=== PATIENT | female | born 1945 | race Caucasian/White ===

== ENCOUNTER → 2017-05-25 | Outpatient (CLI) | payer OTHER ==
[~2017-05-25] MED LIST: IOHEXOL 350 MG/ML 10 ML VIAL (for RAD DIAG) IV ONE
[2017-05-25 09:48] LABS: AUTOMATED NEUTROPHIL # 4.1 TH/MM3 (1.8-7.7); BASOPHIL # 0.1 TH/MM3 (0-0.2); BASOPHIL % 1.3 % (0.0-2.0); EOSINOPHIL # 1.3 TH/MM3 (0-0.4); EOSINOPHIL % 14.4 % (0.0-4.0); HEMATOCRIT 39.5 % (35.0-46.0); HEMO FLAGS DIFF FINAL; LYMPH % 30.4 % (9.0-44.0); LYMPHOCYTE # 2.7 TH/MM3 (1.0-4.8); MEAN CELL VOLUME 89.4 FL (80.0-100.0); MEAN CORPUSCULAR HEMOGLOBIN 29.5 PG (27.0-34.0); MEAN CORPUSCULAR HGB CONC 33.1 % (32.0-36.0); MONO % 7.7 % (0.0-8.0); NEUT % 46.2 % (16.0-70.0); PLATELET COUNT 304 TH/MM3 (150-450); RED BLOOD COUNT 4.42 MIL/MM3 (4.00-5.30); RED CELL DISTRIBUTION WIDTH 13.8 % (11.6-17.2); WHITE BLOOD COUNT 8.8 TH/MM3 (4.0-11.0)
[2017-05-25 10:24] LABS: ALKALINE PHOSPHATASE 54 U/L (45-117); ALT (GPT) 17 U/L (10-53); TOTAL BILIRUBIN ADULT 0.8 MG/DL (0.2-1.0)
[2017-05-25 10:30] LABS: ANION GAP 9 MEQ/L (5-15); AST (GOT) 22 U/L (15-37); BICARBONATE 28.2 MEQ/L (21.0-32.0); BLOOD UREA NITROGEN 19 MG/DL (7-18); CHLORIDE 101 MEQ/L (98-107); GLOMERULAR FILTRATION RATE 39 ML/MIN (>89); SODIUM (NA) 138 MEQ/L (136-145)
[2017-05-25 10:31] LABS: POTASSIUM 4.1 MEQ/L (3.5-5.1)
--- NOTE | 2017-05-25 12:23 | RADRPT ---
EXAM DATE/TIME: 05/25/2017 10:34 [facility] COMPARISON: No previous studies available for comparison. INDICATIONS : Pre operative trans aortic valve replacement. IV CONTRAST: 100 cc Omnipaque 350 (iohexol) IV RADIATION DOSE: 36.4 CTDIvol (mGy) MEDICAL HISTORY : None SURGICAL HISTORY : None. ENCOUNTER: Initial ACUITY: 1 day PAIN SCALE: 0/10 LOCATION: Bilateral chest TECHNIQUE: Volumetric scanning was performed using a multi-row detector CT scanner. The data was post processed with a variety of visualization algorithms including full volume maximum intensity projection, multi -planar sliding thin slab reformation, curved planar reformation, and surface rendering techniques. Using automated exposure control and adjustment of the mA and/or kV according to patient size, radiat ion dose was kept as low as reasonably achievable to obtain optimal diagnostic quality images. DIC OM format image data is available electronically for review and comparison. FINDINGS: Aortic root: The aortic root measures 3.97 cm. Moderate aortic calcification is evident with 3 coronary cusp. Mi nimal coronary calcifications are noted. There are no microcalcifications. There is no pericardial e ffusion. Thoracic aorta: Origin of the great vessels is normal. There is no significant hard or soft plaque. Abdominal aorta: The celiac, SMA and renal arteries are widely patent. Right iliac: Minimal calcification is seen at the origin of the right common iliac. The external iliac and common femoral widely patent. The common femoral measures 7 mm. Left common iliac: Minimal calcifications in aorta and left common iliac. The external iliac and common femoral widely patent. The left common femoral measures 7 mm. Source data: There is mild compensated cardiomegaly. There are no suspicious lung lesions identified. Pelvic contents are unremarkable. Moderate degenerative changes in the lumbar spine. The liver, spleen, pancreas and adrenals are unre markable Right kidney: Small with 4 cm simple cyst. Left kidney: Small renal cyst largest measuring 2.3 cm with one septation. Pelvic contents are unremarkable. Moderate degenerative changes in the lumbar spine CONCLUSION: Minimal atherosclerotic vascular disease as described above with moderate aortic calc ifications. Reasonable pelvic access is available. Ubaldo Tracy MD FACR on May 25, 2017 at 11:58 Board Certified Radiologist. This report was verified electronically.
== END ==
LOC: HRSP 07:56
PROVIDERS: ATTEND Radiology Vascular & Interventional Radiology
DX: I35.0 Nonrheumatic aortic (valve) stenosis (principal)
CPT/HCPCS: 74174; 80053; 85025; 86850; 86900; 86901; 94010; Q9967

== ENCOUNTER 2017-06-10 08:13 | Inpatient (IN) | payer OTHER, MEDICARE ==
[2017-06-10 09:23] LABS: AUTOMATED NEUTROPHIL # 4.9 TH/MM3 (1.8-7.7); BASOPHIL # 0.1 TH/MM3 (0-0.2); BASOPHIL % 1.3 % (0.0-2.0); EOSINOPHIL % 10.8 % (0.0-4.0); HEMO FLAGS DIFF FINAL; LYMPH % 26.5 % (9.0-44.0); LYMPHOCYTE # 2.4 TH/MM3 (1.0-4.8); MEAN CELL VOLUME 90.1 FL (80.0-100.0); MEAN CORPUSCULAR HEMOGLOBIN 30.1 PG (27.0-34.0); MEAN CORPUSCULAR HGB CONC 33.4 % (32.0-36.0); MONO % 7.8 % (0.0-8.0); NEUT % 53.6 % (16.0-70.0); PLATELET COUNT 305 TH/MM3 (150-450); RED BLOOD COUNT 4.22 MIL/MM3 (4.00-5.30); RED CELL DISTRIBUTION WIDTH 13.6 % (11.6-17.2); WHITE BLOOD COUNT 9.1 TH/MM3 (4.0-11.0)
[2017-06-10] MEDS ORDERED: ASPIRIN 81 MG CHEW TAB ONE (09:29)
[2017-06-10 09:34] LABS: APTT (PATIENT) 27.7 SEC (24.3-30.1); PROTHROMBIN TIME - PATIENT 10.9 SEC (9.8-11.6)
[2017-06-10 09:53] LABS: BICARBONATE 25.4 MEQ/L (21.0-32.0); POTASSIUM 4.4 MEQ/L (3.5-5.1)
[2017-06-10] MEDS ORDERED: ceFAZolin 2 GM PREMIX 50 ML ONE (10:57)
[2017-06-10] MEDS ORDERED: CUSTODIOL HTK IRR SOLN 3,000 ML ONE (11:06)
[2017-06-10] MEDS ORDERED: HEPARIN-NS/PF INJ 2,000 ML ONE (11:15)
--- NOTE | 2017-06-10 12:43 | MH ---
cc: HEATH VALDEZ DATE OF ADMISSION: 06/10/2017 DATE OF 1945 REASON FOR ADMISSION Admission to the hospital for percutaneous replacement of the aortic valve (TAVR). HISTORY OF PRESENT ILLNESS 71-year-old female with a past medical history significant for diabetes mellitus on insulin, hypertension, hyperlipidemia, left bundle-branch block and mild chronic renal insufficiency who has been followed by Dr. Lee for severe symptomatic aortic stenosis. The patient reports that for the last weeks to months she has had increased worsening of shortness of breath on minimal exertion as well as chest pain. The echocardiogram done showed severe aortic stenosis with a maximal aortic valve velocity of 4, mean gradient of 40 and calculated valve area of 0.7 and an ejection fraction of 40%. The patient is being admitted today for percutaneous aortic valve replacement. REVIEW OF SYSTEMS Negative except for what is mentioned in the HPI. PAST MEDICAL HISTORY 1. Diabetes type 2. 2. Hypertension. 3. Hyperlipidemia. 4. Left bundle-branch block. 5. Mild kidney disease. 6. Obesity. PAST SURGICAL HISTORY 1. Cholecystectomy. 2. Colonoscopy. 3. Tonsillectomy. SOCIAL HISTORY She denies smoking, illicit drug use or alcohol abuse. FAMILY HISTORY Non-contributory. HOME MEDICATIONS 1. Aspirin 81 mg p.o. daily. 2. Glipizide 10 mg p.o. daily. 3. Lantus injection subcutaneously daily. 4. Losartan. 5. Hydrochlorothiazide 100/25 p.o. daily. 6. Metformin 500 mg p.o. daily. 7. Simvastatin 10 mg p.o. daily. Nitroglycerin 0.5 mg sublingually p.r.n. for chest discomfort. ALLERGIES No known drug allergies. PHYSICAL EXAMINATION VITAL SIGNS: Temperature 97, respiratory rate 20, heart rate 70, bloodpressure 120/80. O2 saturation 100% on room air. GENERAL: Awake, alert, oriented x 3, in no acute distress. HEENT/NECK: No JVD, no carotid bruits. HEART: Regular rate and rhythm. There is a 3/6 systolic ejection murmur inthe aortic focus. LUNGS: Clear to auscultation bilaterally. No wheezes, no rhonchi, no rales. ABDOMEN: Positive bowel sounds. Soft, nontender, not distended. EXTREMITIES: No cyanosis, no edema. Pulses throughout. DATA Hemoglobin 12, hematocrit 38, platelet count 305. WBC 9.1. INR 1. Chemistry: Sodium 136, potassium 4.4, BUN 21, creatinine 1.3. TAVR WORKUP Echocardiogram shows an EF of 40%, aortic valve maximum velocity of 4.1, meangradient of 39 and calculated area of 0.7. CTA annulus area of 393. Iliacs - Both right and left iliac measure more than 7 mm. There is no calcification. STS score is 3.8. Frailty is 1/4. ASSESSMENT AND PLAN 71-year-old female with severe symptomatic aortic stenosis and symptoms of Jones Heart Association classification II-III, as well as angina. She has undergone the TAVR workup and she has been deemed intermediate risk for AVR. She was seen by Dr. Judd and Dr. Cartwright who agree for the patient to have the TAVR. The risks and benefits of TAVR have been explained to the patient including but not limited to infection, bleeding, acute kidney injury, emergent bypass surgery, stroke, neurovascular trauma and . The patient understands the risks and she is willing to proceed. PLAN Access right femoral 23-mm S3 Rayo valve. MD SOTERO Pino/DORIAN /12:03 PM /12:15 PM MTDD
[2017-06-10] MEDS ORDERED: IOHEXOL 350 MG/ML 100 ML BTL (for RAD DIAG) IVCONTRAST ONE (12:45)
[2017-06-10] MEDS ORDERED: ATROPINE SULFATE 1 MG/ML VIAL IV PUSH PRN (14:00)
[2017-06-10] MEDS ORDERED: ONDANSETRON HCL 4 MG/2 ML VIAL IV PUSH PRN (14:00)
[2017-06-10] MEDS ORDERED: ACETAMINOPHEN 325 MG TAB PO PRN (14:00)
[2017-06-10] MEDS ORDERED: SODIUM CHLOR 0.9% 1000 ML INJ 1,000 ML IV SCH (14:00)
[2017-06-10] MEDS ORDERED: DEXTROSE 50% IN WATER 50 ML VIAL(D50) IV PRN (14:00)
[2017-06-10] MEDS ORDERED: GLUCAGON 1 MG/ML VIAL OTHER PRN (14:00)
[2017-06-10] MEDS ORDERED: DO NOT ADM ANY ANTICOAGULANT DRUGS PRN (14:03)
--- NOTE | 2017-06-10 14:06 | PD.OP ---
cc: Noel Lowe MD; Micaela Thakur MD Operative Report Date of Surgery: Jun 10, 2017 Preoperative Diagnosis: (1) Aortic stenosis (2) Diastolic heart failure due to valvular disease Postoperative Diagnosis: same Procedure: Transcatheter aortic valve replacement with a 23 Daphne 3 Balloon aortic valvuloplasty with a 18 True Balloon Diagnostic fluoroscopy Aortography Right and left femoral arterial and left femoral venous percutaneous access with Perclose closure Anesthesia: Dr. Barry Surgeon: Micaela Thakur Physician Anesthesiologist(s): Co-surgeon - Dr. Farhana Allen - Dr. Madrid Operation and Findings: The risks, benefits, complications, treatment options, and expected outcomes were discussed with the patient. The possibilities of reaction to medication, pulmonary aspiration, perforation of viscus, bleeding, recurrent infection, the need for additional procedures, failure to diagnose a condition, and creating a complication requiring transfusion or operation were discussed with the patient. The patient concurred with the proposed plan, giving informed consent. The site of surgery properly noted/marked. The patient was taken to hybrid operating room, identified as Arcelia Padilla and the procedure verified as Transcatheter Aortic Valve Replacement. A Time Out was held and the above information confirmed. Standard monitoring lines and Henderson catheter were placed. General anesthesia was induced. The patient was prepped and draped in a sterile fashion. Initially,left femoral arterial and venous access was acquired using a Seldinger percutaneous technique. The details of this procedure were dictated under separate note by cardiology. Once a marker pigtail was positioned in the aortic annulus and a temporary transvenous pacemaker wire was placed in the right ventricular apex and tested, the right femoral artery was accessed using a needle followed by a guidewire under fluoroscopic guidance. Serial dilators were used to dilate the right femoral artery to 14 Barbadian caliber. The Rayo sheath was then inserted under fluoroscopic guidance. Arch aortography was performed to define the implant view. A balloon aortic valvuloplasty was then performed using a 18 x 6 True balloon with the patient being paced at 160 beats per minute. A 23 Rayo Daphne transcatheter aortic valve was then positioned in the annulus and deployed with the patient being paced at 160 beats per minute. Following deployment, the valve apparatus was withdrawn and arch aortography and SHILO were performed to assess the valve. The valve had no significant perivalvular leaks. Gradients were then measured and the sheath was slowly withdrawn to the distal right common iliac artery under fluoroscopic guidance. The sheath was withdrawn under direct vision and removed. Hemostasis was obtained using Perclose closure. Sterile dressings were placed. At the end of the operation, all sponge, instruments, and needle counts were correct. The patient was transferred to the CVICU in stable condition. Findings: Well-seated Daphne 3 with no PVL. Implants: 23 Daphne 3 tissue valve Complications: none Disposition: to CVICU in stable condition. Micaela Thakur MD Jun 10, 2017 14:06
[2017-06-10 14:15] VITALS: BP_SYST 137; BP_SYST 157; BP_DIAS 79; BP_DIAS 88; PULSE 74; PULSE 76; RESP 18; TEMP 94.6; O2SAT 97
[2017-06-10 14:26] VITALS: O2SAT 98
[2017-06-10] MEDS ORDERED: CLOPIDOGREL 300 MG TAB PO ONE (14:30)
[2017-06-10] MEDS ORDERED: MIDAZOLAM HCL 2 MG/2 ML VIAL ONE ×2 (14:44)
[2017-06-10] MEDS ORDERED: fentaNYL CITRATE 250 MCG/5 ML AMP ONE (14:44)
[2017-06-10 15:00] VITALS: BP_SYST 128; BP_SYST 151; BP_DIAS 66; BP_DIAS 75; PULSE 66; PULSE 68; RESP 18; TEMP 94.9; O2SAT 99
[2017-06-10] MEDS: INSULIN NovoLIN REGULAR SUPPLEMENTAL SCALE SQ SCH ×2 (16:07→21:00)
--- NOTE | 2017-06-10 16:22 | RADRPT ---
EXAM DATE/TIME: 06/10/2017 15:28 [facility] COMPARISON: No previous studies available for comparison. INDICATIONS : Central line placement MEDICAL HISTORY : None. SURGICAL HISTORY : None. ENCOUNTER: Initial ACUITY: 1 day PAIN SCORE: 0/10 LOCATION: Bilateral chest FINDINGS: There is patchy airspace disease in the left upper and lower lobes and right basilar atelectasis, pos sible small right effusion. There are 2 right jugular approach central venous catheter lines identifi ed, one demonstrates the distal tip at the expected location of the SVC, the other overlies the heart at the expected location of the right atrium versus ventricle. A metallic cardiac valvular prosthesi s overlies the heart. CONCLUSION: Central line placement. Ez Jackman MD on June 10, 2017 at 16:19 Board Certified Radiologist. This report was verified electronically.
--- NOTE | 2017-06-10 19:29 | EKG ---
Date Performed: 06/10/2017 Time Performed: 09:35:00 PTAGE: 71 years EKG: Sinus rhythm Left axis deviation Left bundle branch block Abnormal ECG NO PREVIOUS TRACING DOCTOR: Mirlande Burns Interpretating Date/Time 06/10/2017 19:28:15
--- NOTE | 2017-06-10 19:52 | PD.CONS ---
[facility] Service Critical Care Medicine Consult Requested By Dr. Declid Reason for Consult medical management of comorbid conditions Primary Care Physician Fabian Renee MD History of Present Illness This is a 71yF with history of insulin-dependent diabetes, hypertension, hyperlipidemia, left bundle-branch block, chronic renal insufficiency with baseline creatinine 1.3 and symptomatic aortic stenosis with a calculated valve area of 0.7 and a mildly depressed LVEF with any EF 40%. She presents for elective transcatheter aortic valve placement. I evaluated patient and the preop holding area. At that time she denied any complaints. I also evaluated her in the CVICU postoperatively where she again denied any complaints. Remainder the review of systems is negative. She underwent elective uncomplicated transcatheter aortic valve replacement with the right groin as access. Postoperatively she had dopplerable pulses bilaterally lower extremity' s. Review of Systems Constitutional: DENIES: Fever, Chills Eyes: DENIES: Eye pain Respiratory: DENIES: Cough, Sputum production, Shortness of breath Cardiovascular: DENIES: Chest pain, Syncope, Dyspnea on Exertion, Lower Extremity Edema Gastrointestinal: DENIES: Abdominal pain, Constipation, Diarrhea, Nausea, Vomiting Neurologic: DENIES: Headache, Localized weakness Past Family Social History Allergies: Coded Allergies: No Known Allergies (Verified Allergy, Unknown, 06/10/17) Past Medical History Insulin-dependent type 2 diabetes Hypertension Hyperlipidemia Left bundle branch block Stage 2 chronic kidney disease, baseline creatinine 1.3 Obesity Severe aortic stenosis Past Surgical History Cholecystectomy Colonoscopy Tonsillectomy Reported Medications Aspirin Glipizide Lantus Losartan HCTZ Metformin Simvastatin Active Ordered Medications See MAR Family History Reviewed and found to be noncontributory to her acute illness Social History Denies tobacco, alcohol, drugs of abuse Physical Exam Vital Signs Vital Signs Date Time Temp Pulse Resp B/P (MAP) Pulse Ox O2 Delivery O2 Flow Rate FiO2 06/10/17 15:00 94.9 68 18 128/75 (92) 99 151/66 (94) 06/10/17 15:00 66 06/10/17 14:26 98 Nasal Cannula 2.00 06/10/17 14:15 94.6 74 18 137/88 (104) 97 157/79 (105) 06/10/17 14:15 76 Physical Exam GENERAL: Frail elderly women, arousing from anesthesia, somnolent but arousable HEENT: Normocephalic. Atraumatic. Pupils equal, round, reactive, conjugate. Mucous membranes are moist NECK: Trachea is midline. There is no JVD. To central venous catheters exits right IJ with dressings are clean dry and intact CHEST: Unlabored. Nasal cannula. Clear to auscultation. CARDIOVASCULAR: Normal rate, regular rhythm. Sinus by telemetry. ABDOMEN: Soft, nontender, nondistended. No guarding. MUSCULOSKELETAL: Pulses 2+. No peripheral edema. Distal pulses are dopplerable in the lower extremities. 2 groin accesses with dressings intact no hematoma noted NEUROLOGICAL RASS -1. Follows commands. No focal deficits. Laboratory Laboratory Tests Test 06/10/17 09:00 White Blood Count 9.1 Red Blood Count 4.22 Hemoglobin 12.7 Hematocrit 38.0 Mean Corpuscular Volume 90.1 Mean Corpuscular Hemoglobin 30.1 Mean Corpuscular Hemoglobin Concent 33.4 Red Cell Distribution Width 13.6 Platelet Count 305 Mean Platelet Volume 7.4 Neutrophils (%) (Auto) 53.6 Lymphocytes (%) (Auto) 26.5 Monocytes (%) (Auto) 7.8 Eosinophils (%) (Auto) 10.8 Basophils (%) (Auto) 1.3 Neutrophils # (Auto) 4.9 Lymphocytes # (Auto) 2.4 Monocytes # (Auto) 0.7 Eosinophils # (Auto) 1.0 Basophils # (Auto) 0.1 CBC Comment DIFF FINAL Differential Comment Prothrombin Time 10.9 Prothromb Time International Ratio 1.0 Activated Partial Thromboplast Time 27.7 Blood Urea Nitrogen 21 Creatinine 1.30 Random Glucose 288 Calcium Level 8.4 Sodium Level 136 Potassium Level 4.4 Chloride Level 103 Carbon Dioxide Level 25.4 Anion Gap 8 Estimat Glomerular Filtration Rate 40 Result Diagram: 06/10/17 0900 06/10/17 09 Assessment and Plan Assessment and Plan Assessment: 71-year-old female postop day 0 status post transcatheter aortic valve replacement with right iliac groin access. We'll keep in ICU with frequent neurovascular checks and close monitoring. If she continues to improve clinically we could consider transitioning her out of ICU tomorrow. Aortic Stenosis s/p TAVR -- monitor neurovascular checks frequently -- watch for groin hematoma -- OOB to chair after flat time -- keep pacer tonight -- keep CVL and art line tonight -- watch uop closely -- plavix, asa Hypertension -- restart home meds -- goal sbp 110 - 140 Diabetes --ssi -- wait until tomorrow to restart oral hypoglycemics advance diet as tolerated. SCDs Dispo: remain in ICU overnight for close monitoring. could consider transitioning to floor tomorrow. Quan Bernard MD Jun 10, 2017 19:52
--- NOTE | 2017-06-10 19:58 | PD.PROCEDR ---
Procedure Note Procedure Procedure: Transesophageal Echocardiography Diagnosis: Severe aortic stenosis Indications: Intraoperative guidance for transcatheter aortic valve replacement. SHILO was used to confirm the preoperative diagnoses and guide intraoperative therapy at the request of cardiology/cardiac surgeon Consent: Verbal consent was obtained from the patient. I discussed the risks benefits and alternatives of SHILO with the patient including the risks of injury to the lips, teeth, tongue, back of throat, esophagus. After weighing the risks and benefits the patient agreed to proceed. Anesthesia: General Endotracheal anesthesia Description of the Procedure: The patient was sedated and mechanically ventilated. The echo probe was inserted easily and without resistance. At the conclusion of the procedure, the echo probe was removed. Please see detailed echocardiogram report for formal findings. Preliminary Findings (not confirmed): Pre-procedure: 1) Mildly depressed LVEF ~40% 2) Severe aortic stenosis with calculated valve area ~0.6 3) Mild aortic regurgitation 4) trace mitral regurgitation 5) preserved RV size and function 6) no pericardial effusion 7) no intra-atrial shunt by color flow doppler Intra-operative: 1) successful guidewire placement in aorta without evidence of dissection 2) successful balloon valvuloplasty with worsening aortic insufficiency Post-procedure: 1) successful deployment of trans-catheter aortic valve 2) no evidence of perivalvular leak 3) trivial central aortic insufficiency 4) no evidence of aortic stenosis, mean gradient across the valve 5 mmHg 5) slightly improved LVEF ~45% The patient tolerated the procedure well with no hemodynamic instability or hypoxia. There were no immediate complications noted. There was minimal EBL. I personally performed the procedure. Quan Bernard MD Jun 10, 2017 19:58
[2017-06-10 20:00] VITALS: BP_SYST 132; BP_SYST 151; BP_DIAS 55; BP_DIAS 69; PULSE 74; PULSE 75; RESP 20; TEMP 97.9; O2SAT 99
[2017-06-10 20:51] VITALS: O2SAT 98
[2017-06-11] VITALS (12 sets, daily range): BP systolic 119–152; BP diastolic 53–88; PULSE 74–106; RESP 16–18; TEMP 97.8–99.2; O2SAT 92–96
[2017-06-11 04:48] LABS: HEMATOCRIT 32.7 % (35.0-46.0); MEAN CELL VOLUME 89.1 FL (80.0-100.0); MEAN CORPUSCULAR HEMOGLOBIN 29.8 PG (27.0-34.0); MEAN CORPUSCULAR HGB CONC 33.5 % (32.0-36.0); PLATELET COUNT 235 TH/MM3 (150-450); RED BLOOD COUNT 3.68 MIL/MM3 (4.00-5.30); RED CELL DISTRIBUTION WIDTH 13.4 % (11.6-17.2); REVIEW FLAG FINAL; WHITE BLOOD COUNT 10.4 TH/MM3 (4.0-11.0)
[2017-06-11 05:25] LABS: BICARBONATE 25.3 MEQ/L (21.0-32.0)
--- NOTE | 2017-06-11 05:44 | MA ---
cc: NOEL VALDEZ DATE OF 1945 DATE OF PROCEDURE 06/10/2017 PREOPERATIVE DIAGNOSES 1. Severe aortic stenosis with aortic valve area of 0.7, a mean gradient of 40, a jet velocity of 4.1 with an ejection fraction of 40% with symptoms of shortness of breath with minimal exertion, fatigue. 2. Angina. 3. Chronic systolic heart failure. 4. Diabetes. 5. Hypertension. 6. Hyperlipidemia. 7. History of left bundle branch block. POSTOPERATIVE DIAGNOSES 1. Severe aortic stenosis with aortic valve area of 0.7, a mean gradient of 40, a jet velocity of 4.1 with an ejection fraction of 40% with symptoms of shortness of breath with minimal exertion, fatigue. 2. Angina. 3. Chronic systolic heart failure. 4. Diabetes. 5. Hypertension. 6. Hyperlipidemia. 7. History of left bundle branch block. OPERATIVE PROCEDURE 1. Transfemoral transcatheter aortic valve replacement via the right common femoral artery. 2. Aortic root angiography. 3. Placement of pigtail catheter for angiography. 4. Temporary pacemaker insertion. 5. Balloon aortic valvuloplasty with an 18 True balloon. 6. Right and left femoral artery and left femoral venous percutaneous access with Perclose closure. SURGEON Dr. Thakur. Dr. Cartwright MAINTENANCE HELPER UTILITY ENGINEER Dr. Noel Madrid. ANESTHESIOLOGIST Dr. Barry ECHO SUPPORT Dr. Abdi Bernard BLOOD LOSS Minimal. IMPLANTATION A 23 Rayo SONDRA 3 aortic valve via the right transfemoral approach. INDICATIONS 71-year-old female with severe symptomatic aortic stenosis with hypertension, diabetes, STS score of 3 and frailty of 1/4. The patient with progressive symptoms of angina and heart failure. The patient has been evaluated for aortic valve replacement and the patient is felt to be intermediate risk for comprehensive aortic valve replacement by virtue of comorbidities, frailty and STS score by Cardiothoracic surgery. In that regard she has been evaluated for and accepted after extensive review of the patient's chart among the TAVR Team for transcatheter aortic valve replacement. The risks of the procedures have been discussed with the patient at length and consent has been signed to proceed as planned. TECHNIQUE Consent signed. The patient was taken to the hybrid operating room. She was draped and prepped in sterile fashion. She was under general anesthesia. Intraoperative transesophageal echocardiogram confirmed the severity of aortic valve stenosis, EF of 40%. The transesophageal echocardiogram probe was placed and used throughout the procedure to evaluate the aortic valve position and position of our catheters. The left femoral artery and vein were prepped and draped in sterile fashion and entered percutaneously with a 6-Bruneian sheath in the left femoral artery and a 5 -Bruneian sheath in the left femoral vein. A pigtail catheter was advanced around the arch of the aorta through the left arterial sheath and an aortic root angiography was performed in order to get optimal views for deployment of the SONDRA S3 aortic valve. Using a micropuncture kit, an 8-Bruneian sheath was inserted into the right common femoral artery, positioned and angiography was performed to confirm position of this sheath and complications of bleeding. Then the vessel was pre- closed with three Perclose devices. Then 0.035 Supra Core wire was advanced into the ascending aorta, followed by predilation of the vessel with a 10- Bruneian dilator and then followed by insertion of a 14-Bruneian Rayo valve sheath. The patient was fully heparinized with ACT checked. We used an AL-1 over a 0.035 mm stiff Amplatz straight wire to cross the aortic valve the tip of the wire was left in the mid- left ventricular cavity and exchanged for the pigtail catheter. Then the wire was preshaped outside the body and reintroduced and anchored distally in the left ventricle. At this point a balloon dilation was performed using a 18-mm True balloon with rapid pacing. This was removed and a 23-mm Rayo SONDRA 3 aortic valve was placed in position, confirmed with transesophageal echo and aortography using a pigtail catheter. This was successfully deployed by balloon inflation during rapid pacing. After confirming good valve fill in the annulus with no significant perivalvular leaks or other complications, the catheter was removed. The delivery sheath was removed from the right femoral artery and Perclose by Dr. Delcid. The pigtail was removed as well as the left-sided sheaths with Perclose in the left common femoral artery and Mynx on the left femoral vein. This concluded the operation. The patient tolerated the procedure well without complications. Estimated blood loss minimal. The aortic valve area postprocedure was 2. The post-implant mean gradient was 5mmHg. The post-implant peak velocity was 1.4m.sec. CONCLUSION Successful implantation of a 23mm S3 Rayo valve percutaneously in the aortic valve via right transfemoral access in the setting of severe symptomatic aortic stenosis. COMPLICATIONS None. 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 -After bed rest out of bed to chair -DAPT with ASA and Plavix -Restart home medications -Telemetry monitoring -Temporary pacemaker will be keep in place for at least the next 24hrs. MD SOTERO Pino/SSB /3:56 PM /5:07 AM [id number]
[2017-06-11] MEDS: INSULIN NovoLIN REGULAR SUPPLEMENTAL SCALE SQ SCH ×4 (06:20→20:49)
--- NOTE | 2017-06-11 08:36 | PD.CARD.PN ---
Subjective Subjective Remarks No overnight events No CV complaints No events on Telemetry Objective Medications Current Medications Medications (Trade) Dose Ordered Sig/Alex Route Start Time Stop Time Status Last Admin (Tylenol) 650 mg Q4H PRN PO 06/10/17 14:00 06/11/17 13:59 06/11/17 03:41 (Atropine Inj) 0.5 mg UNSCH PRN IV PUSH 06/10/17 14:00 06/11/17 13:59 (Aspirin Chew) 81 mg DAILY PO 06/11/17 09:00 (Plavix) 75 mg DAILY PO 06/11/17 09:00 (D50w (Vial) Inj) 50 ml UNSCH PRN IV 06/10/17 14:00 (Glucagon Inj) 1 mg UNSCH PRN OTHER 06/10/17 14:00 (NovoLIN R SUPPLEMENTAL SCALE) 1 ACHS SLIDING SCALE SQ 06/10/17 16:00 06/10/17 16:07 Miscellaneous Information ALL NURSING DEPARTME... UNSCH PRN .XX 06/10/17 14:03 06/11/17 14:02 Vital Signs / I&O Vital Signs Date Time Temp Pulse Resp B/P (MAP) Pulse Ox O2 Delivery O2 Flow Rate FiO2 06/11/17 04:00 82 18 94 130/54 (79) 06/11/17 04:00 94 Nasal Cannula 1.00 06/11/17 04:00 82 06/11/17 00:00 95 Nasal Cannula 1.00 06/11/17 00:00 98.0 74 18 144/88 (106) 95 152/53 (86) 06/11/17 00:00 74 06/10/17 21:30 97 Nasal Cannula 1.00 06/10/17 21:00 90 Room Air 06/10/17 20:51 98 Nasal Cannula 2.00 06/10/17 20:00 74 06/10/17 20:00 99 Nasal Cannula 2.00 06/10/17 20:00 97.9 75 20 132/69 (90) 99 151/55 (87) 06/10/17 15:00 94.9 68 18 128/75 (92) 99 151/66 (94) 06/10/17 15:00 66 06/10/17 14:26 98 Nasal Cannula 2.00 06/10/17 14:15 94.6 74 18 137/88 (104) 97 157/79 (105) 06/10/17 14:15 76 I/O 06/10/17 06/10/17 06/10/17 06/11/17 06/11/17 06/11/17 07:00 15:00 23:00 07:00 15:00 23:00 Intake Total 1000 ml 1120 ml 480 ml Output Total 300 ml 375 ml 600 ml Balance 700 ml 745 ml -120 ml Intake Oral 120 ml 480 ml IV Total 1000 ml Other 1000 ml Output Urine Total 300 ml 375 ml 600 ml # Bowel Movements 0 0 Physical Exam GENERAL: Well-nourished, well-developed patient. SKIN: Warm and dry. HEAD: Normocephalic. EYES: No scleral icterus. No injection or drainage. NECK: Supple, trachea midline. + JVD or lymphadenopathy. CARDIOVASCULAR: Regular rate and rhythm without murmurs, gallops, or rubs. RESPIRATORY: Breath sounds equal bilaterally. No accessory muscle use. mild rales at bases GASTROINTESTINAL: Abdomen soft, non-tender, nondistended. EXTREMITIES: No cyanosis, or mild edema. NEUROLOGICAL: Awake, alert, and oriented x 3. Non-focal. Laboratory Laboratory Tests Test 06/10/17 09:00 06/11/17 04:35 White Blood Count 9.1 TH/MM3 10.4 TH/MM3 Red Blood Count 4.22 MIL/MM3 3.68 MIL/MM3 Hemoglobin 12.7 GM/DL 11.0 GM/DL Hematocrit 38.0 % 32.7 % Mean Corpuscular Volume 90.1 FL 89.1 FL Mean Corpuscular Hemoglobin 30.1 PG 29.8 PG Mean Corpuscular Hemoglobin Concent 33.4 % 33.5 % Red Cell Distribution Width 13.6 % 13.4 % Platelet Count 305 TH/MM3 235 TH/MM3 Mean Platelet Volume 7.4 FL 7.1 FL Neutrophils (%) (Auto) 53.6 % Lymphocytes (%) (Auto) 26.5 % Monocytes (%) (Auto) 7.8 % Eosinophils (%) (Auto) 10.8 % Basophils (%) (Auto) 1.3 % Neutrophils # (Auto) 4.9 TH/MM3 Lymphocytes # (Auto) 2.4 TH/MM3 Monocytes # (Auto) 0.7 TH/MM3 Eosinophils # (Auto) 1.0 TH/MM3 Basophils # (Auto) 0.1 TH/MM3 CBC Comment DIFF FINAL Differential Comment Prothrombin Time 10.9 SEC Prothromb Time International Ratio 1.0 RATIO Activated Partial Thromboplast Time 27.7 SEC Blood Urea Nitrogen 21 MG/DL 14 MG/DL Creatinine 1.30 MG/DL 1.06 MG/DL Random Glucose 288 MG/DL 133 MG/DL Calcium Level 8.4 MG/DL 8.3 MG/DL Sodium Level 136 MEQ/L 139 MEQ/L Potassium Level 4.4 MEQ/L 4.0 MEQ/L Chloride Level 103 MEQ/L 105 MEQ/L Carbon Dioxide Level 25.4 MEQ/L 25.3 MEQ/L Anion Gap 8 MEQ/L 9 MEQ/L Estimat Glomerular Filtration Rate 40 ML/MIN 51 ML/MIN Imaging Last Impressions Chest X-Ray 06/10/17 0000 Signed Impressions: Service Date/Time: Saturday, June 10, 2017 15:28 - CONCLUSION: Central line placement. Ez Jackman MD Assessment and Plan Problem List: (1) Aortic stenosis ICD Codes: I35.0 - Nonrheumatic aortic (valve) stenosis Status: Resolved Plan: 71 y/o F with severe aortic stenosis s/p 23mm Sapiens S3 valve thru right TF. She remains afebrile and hemodynamically stable. No overnight events. Out of bed. On physical exam + signs of acute on chronic systolic heart failure. Labs within normal limits. Appreciate Dr. Bernard follow up and recommendations. Recommendations: 1. D/C PPM 2. D/C Art line 3. D/C IJ 4. Lasix 20mg IV 5. Encourage ambulation and incentive spirometry 6. Cont DAPT with ASA and Plavix 7. Tx to CIC 8. EP consult today 9. PT/OT (2) Systolic and diastolic CHF, acute on chronic ICD Codes: I50.43 - Acute on chronic combined systolic (congestive) and diastolic (congestive) heart failure Status: Acute (3) HTN (hypertension) ICD Codes: I10 - Essential (primary) hypertension Status: Chronic Problem Qualifiers (1) Aortic stenosis: Qualified Codes: I35.0 - Nonrheumatic aortic (valve) stenosis Noel Lowe MD Jun 11, 2017 08:36
[2017-06-11] MEDS: CLOPIDOGREL 75 MG TAB PO SCH (09:35)
[2017-06-11] MEDS: ASPIRIN 81 MG CHEW TAB PO SCH (09:35)
[2017-06-11] MEDS ORDERED: INFLUENZA VIRUS VACCINE (QUADRIVALENT) 0.5 ML SYR IM ONE (10:00)
[2017-06-11] MEDS ORDERED: BENZOCAINE-MENTHOL (SUGAR FREE) 15 MG-3.6 MG LOZENGE BUCCAL PRN (11:00)
--- NOTE | 2017-06-11 11:17 | EKG ---
Date Performed: 06/11/2017 Time Performed: 03:45:34 PTAGE: 71 years EKG: Sinus rhythm . Left axis deviation Left bundle branch block Poor R wave progression Abnormal ECG PREVIOUS TRACING : 06/10/2017 09.35 No significant change from previous tracing noted. DOCTOR: Andrzej Daugherty Interpretating Date/Time 06/11/2017 11:15:11
--- NOTE | 2017-06-11 16:02 | PD.CAR.PN ---
CVT Progress Note CVT: POD #: 1 Subjective/Hospital Course: 71yF with history of insulin-dependent diabetes, hypertension, hyperlipidemia, left bundle-branch block, chronic renal insufficiency with baseline creatinine 1.3 and symptomatic aortic stenosis with a calculated valve area of 0.7 and a mildly depressed LVEF with any EF 40%. She presents for elective transcatheter aortic valve placement. pt underwent elective uncomplicated transcatheter aortic valve replacement with the right groin as access/ left groin access surgery : 06/10/17 Transcatheter aortic valve replacement with a 23 Daphne 3, Balloon aortic valvuloplasty with a 18 True Balloon, Right and left femoral arterial and left femoral venous percutaneous access with Perclose closure 06/11 pt doing well , up in chair, temporary pacer removed by Dr Delcid/ Right IJ cordis and sheath removed also no c/o of pain doing well postop Objective: GENERAL: SKIN: Warm and dry. right IJ dressing in place, dressing in place right and left groin, no hematoma + distal pulses HEAD: Normocephalic. EYES: No scleral icterus. No injection or drainage. NECK: Supple, trachea midline. No JVD or lymphadenopathy. CARDIOVASCULAR: Regular rate and rhythm without murmurs, gallops, or rubs. RESPIRATORY: Breath sounds equal bilaterally. No accessory muscle use. GASTROINTESTINAL: Abdomen soft, non-tender, nondistended. MUSCULOSKELETAL: No cyanosis, or edema. BACK: Nontender without obvious deformity. No CVA tenderness. Vital Signs Date Time Temp Pulse Resp B/P (MAP) Pulse Ox O2 Delivery O2 Flow Rate FiO2 06/11/17 11:00 98.2 78 16 127/71 (89) 95 144/57 (86) 06/11/17 11:00 95 Nasal Cannula 1.00 06/11/17 09:21 92 21 06/11/17 08:30 95 Nasal Cannula 1.00 06/11/17 08:19 80 126/76 (93) 141/57 (85) 06/11/17 08:19 95 Nasal Cannula 1.00 06/11/17 08:19 76 06/11/17 08:19 99.2 80 16 126/76 (93) 95 144/57 (86) 06/11/17 04:00 82 18 94 130/54 (79) 06/11/17 04:00 94 Nasal Cannula 1.00 06/11/17 04:00 82 8/24/17 00:00 95 Nasal Cannula 1.00 06/11/17 00:00 98.0 74 18 144/88 (106) 95 152/53 (86) 06/11/17 00:00 74 06/10/17 21:30 97 Nasal Cannula 1.00 06/10/17 21:00 90 Room Air 06/10/17 20:51 98 Nasal Cannula 2.00 06/10/17 20:00 74 06/10/17 20:00 99 Nasal Cannula 2.00 06/10/17 20:00 97.9 75 20 132/69 (90) 99 151/55 (87) Labs: Laboratory Tests Test 06/11/17 04:35 White Blood Count 10.4 TH/MM3 (4.0-11.0) Red Blood Count 3.68 MIL/MM3 (4.00-5.30) Hemoglobin 11.0 GM/DL (11.6-15.3) Hematocrit 32.7 % (35.0-46.0) Mean Corpuscular Volume 89.1 FL (80.0-100.0) Mean Corpuscular Hemoglobin 29.8 PG (27.0-34.0) Mean Corpuscular Hemoglobin Concent 33.5 % (32.0-36.0) Red Cell Distribution Width 13.4 % (11.6-17.2) Platelet Count 235 TH/MM3 (150-450) Mean Platelet Volume 7.1 FL (7.0-11.0) Blood Urea Nitrogen 14 MG/DL (7-18) Creatinine 1.06 MG/DL (0.50-1.00) Random Glucose 133 MG/DL (74-106) Calcium Level 8.3 MG/DL (8.5-10.1) Sodium Level 139 MEQ/L (136-145) Potassium Level 4.0 MEQ/L (3.5-5.1) Chloride Level 105 MEQ/L (98-107) Carbon Dioxide Level 25.3 MEQ/L (21.0-32.0) Anion Gap 9 MEQ/L (5-15) Estimat Glomerular Filtration Rate 51 ML/MIN (>89) Result Diagram: 06/11/175 06/11/17434 (1) Aortic stenosis Plan: 71 y/o F with severe aortic stenosis s/p 23mm Sapiens S3 valve thru right TF doing well postop . no groin complications postop care as per Dr Delcid on ASA, plavix ok to transfer to stepdown (2) Systolic and diastolic CHF, acute on chronic (3) HTN (hypertension) Problem Qualifiers (1) Aortic stenosis: Qualified Codes: I35.0 - Nonrheumatic aortic (valve) stenosis Wen Cotton Jun 11, 2017 16:02
[2017-06-12] VITALS (13 sets, daily range): BP systolic 118–146; BP diastolic 74–78; PULSE 78–98; RESP 16–18; TEMP 98–98.7; O2SAT 94–97
[2017-06-12] MEDS: INSULIN NovoLIN REGULAR SUPPLEMENTAL SCALE SQ SCH ×2 (06:31→11:41)
--- NOTE | 2017-06-12 08:54 | PD.CARD.PN ---
Subjective Subjective Remarks No overnight events No CV complaints Objective Medications Current Medications Medications (Trade) Dose Ordered Sig/Alex Route Start Time Stop Time Status Last Admin (Aspirin Chew) 81 mg DAILY PO 06/11/17 09:00 06/11/17 09:35 (Plavix) 75 mg DAILY PO 06/11/17 09:00 06/11/17 09:35 (D50w (Vial) Inj) 50 ml UNSCH PRN IV 06/10/17 14:00 (Glucagon Inj) 1 mg UNSCH PRN OTHER 06/10/17 14:00 (NovoLIN R SUPPLEMENTAL SCALE) 1 ACHS SLIDING SCALE SQ 06/10/17 16:00 06/12/17 06:31 (Cepacol Extra Yolanda (Sugar Free)) 1 lozenge Q4H PRN BUCCAL 06/11/17 11:00 Vital Signs / I&O Vital Signs Date Time Temp Pulse Resp B/P (MAP) Pulse Ox O2 Delivery O2 Flow Rate FiO2 06/12/17 06:37 91 06/12/17 05:18 95 06/12/17 04:01 85 06/12/17 03:38 87 06/12/17 03:38 96 Room Air 06/12/17 03:38 98.7 86 18 121/77 (92) 94 06/12/17 01:47 83 06/12/17 00:26 96 06/11/17 23:55 99.2 94 17 119/60 (79) 95 06/11/17 23:55 96 Room Air 06/11/17 23:55 95 06/11/17 22:00 106 06/11/17 21:00 94 06/11/17 20:00 92 06/11/17 19:50 96 Room Air 06/11/17 19:50 97.8 93 16 152/76 (101) 96 06/11/17 19:50 91 06/11/17 15:00 98.0 78 16 142/83 (102) 95 Arterial Line 06/11/17 15:00 97 Nasal Cannula 1.00 06/11/17 11:00 98.2 78 16 127/71 (89) 95 144/57 (86) 06/11/17 11:00 95 Nasal Cannula 1.00 06/11/17 09:21 92 21 I/O 06/11/17 06/11/17 06/11/17 06/12/17 8/25/17 8/25/17 07:00 15:00 23:00 07:00 15:00 23:00 Intake Total 480 ml 480 ml 240 ml Output Total 600 ml 850 ml Balance -120 ml -370 ml 240 ml Intake Oral 480 ml 480 ml 240 ml Output Urine Total 600 ml 850 ml # Voids 4 # Bowel Movements 0 0 Physical Exam GENERAL: Well-nourished, well-developed patient. SKIN: Warm and dry. HEAD: Normocephalic. EYES: No scleral icterus. No injection or drainage. NECK: Supple, trachea midline. + JVD or lymphadenopathy. CARDIOVASCULAR: Regular rate and rhythm without murmurs, gallops, or rubs. RESPIRATORY: Breath sounds equal bilaterally. No accessory muscle use. mild rales at bases GASTROINTESTINAL: Abdomen soft, non-tender, nondistended. EXTREMITIES: No cyanosis, or mild edema. NEUROLOGICAL: Awake, alert, and oriented x 3. Non-focal. Assessment and Plan Problem List: (1) Aortic stenosis ICD Codes: I35.0 - Nonrheumatic aortic (valve) stenosis Status: Resolved Plan: 71 y/o F with severe symptomatic s/p Right TF 23mm S3 TAVR, doing well this AM. Acute on chronic systolic heart failure. She remains afebrile and hemodynamically stable. Labs within normal limits. Appreciate EP recommendations, no need for PPM or EPS. Plan: 1. D/C Home today 2. Encourage incentive spirometry and ambulation 3. Cont DAPT with ASA and Plavix 4. F/U with Valve Team in 30days (2) Systolic and diastolic CHF, acute on chronic ICD Codes: I50.43 - Acute on chronic combined systolic (congestive) and diastolic (congestive) heart failure Status: Acute (3) HTN (hypertension) ICD Codes: I10 - Essential (primary) hypertension Status: Chronic Problem Qualifiers (1) Aortic stenosis: Qualified Codes: I35.0 - Nonrheumatic aortic (valve) stenosis Noel Lowe MD Jun 12, 2017 08:54
[2017-06-12] MEDS ORDERED: PLAV75TA29 PO (08:59)
[2017-06-12] MEDS ORDERED: ASPI81CH25 PO (08:59)
--- NOTE | 2017-06-12 09:04 | HHI.DS ---
Discharge Summary Admission Date Jun 10, 2017 at 08:13 Discharge Date: Jun 12, 2017 Admitting Diagnosis Severe Symptomatic Aortic Stenosis LV systolic dysfunction Acute on Chronic Systolic Heart Failure HTN LBBB Chronic Kidney Disease Procedures Successful right TF TAVR with a 23mm S3 Rayo Valve Brief History 71 y/o F admitted for TAVR in the setting of severe symptomatic aortic stenosis with NYHA III sx. Intermediate risk for AVR per CT surgery due to STS, Frailty and comorbidities CBC/BMP: 06/11/17 0435 06/11/17 0435 Significant Findings Laboratory Tests Test 06/10/17 09:00 06/11/17 04:35 Eosinophils (%) (Auto) 10.8 % (0.0-4.0) Eosinophils # (Auto) 1.0 TH/MM3 (0-0.4) Blood Urea Nitrogen 21 MG/DL (7-18) Creatinine 1.30 MG/DL (0.50-1.00) 1.06 MG/DL (0.50-1.00) Random Glucose 288 MG/DL (74-106) 133 MG/DL (74-106) Calcium Level 8.4 MG/DL (8.5-10.1) 8.3 MG/DL (8.5-10.1) Estimat Glomerular Filtration Rate 40 ML/MIN (>89) 51 ML/MIN (>89) Red Blood Count 3.68 MIL/MM3 (4.00-5.30) Hemoglobin 11.0 GM/DL (11.6-15.3) Hematocrit 32.7 % (35.0-46.0) Imaging Last Impressions Chest X-Ray 06/10/17 0000 Signed Impressions: Service Date/Time: Saturday, June 10, 2017 15:28 - CONCLUSION: Central line placement. Ez Jackman MD PE at Discharge GENERAL: Well-nourished, well-developed patient. SKIN: Warm and dry. HEAD: Normocephalic. EYES: No scleral icterus. No injection or drainage. NECK: Supple, trachea midline. No JVD or lymphadenopathy. CARDIOVASCULAR: Regular rate and rhythm without murmurs, gallops, or rubs. RESPIRATORY: Breath sounds equal bilaterally. No accessory muscle use. GASTROINTESTINAL: Abdomen soft, non-tender, nondistended. EXTREMITIES: No cyanosis, or edema. NEUROLOGICAL: Awake, alert, and oriented x 3. Non-focal. Hospital Course 71 y/o F admitted for Right TF TAVR in the setting of severe symptomatic with NHYA III symptoms, Intermediate Risk for AVR per CT surgery due to STS, Frailty and Comorbidities. She underwent successful right TF TAVR with a 23mm S3 Rayo Valve. Patient tolerated procedure well without complications, extubated in the OR. After procedure she was admitted to CVICU. She had symptoms of acute on chronic systolic heart failure which was treated with IV Lasix. 2Decho done post procedure showed resolution of the with good position of the bioprosthesis. She ambulated without difficulty post procedure, transferred to [facility] POD#2. She was evaluated by EP Dr. Salazar. Patient is stable to be discharge home today with follow up with Heart valve Clinic in 30 days. Pt Condition on Discharge: Good Discharge Disposition: Discharge Home Discharge Instructions DIET: Follow Instructions for: Heart Healthy Diet Speech Therapy-Diet Recommenda: Regular Activities you can perform: Weight Bearing as Amrit New Medications: Aspirin (Aspirin Low Strength) 81 Mg Chew 81 MG PO DAILY for Chest Pain MDD 81 for 30 Days, #30 EA 9 Refills Clopidogrel (Plavix) 75 Mg Tab 75 MG PO DAILY for Chest Pain MDD 75 for 30 Days, #30 TAB 9 Refills Noel Lowe MD Jun 12, 2017 09:04
--- NOTE | 2017-06-12 09:07 | MB ---
cc: JERONIMO VEGA M.D. DATE OF CONSULTATION 06/12/2017 REASON FOR CONSULTATION Left bundle-branch block, status post TAVR. Mrs. Padilla is a 71-year-old female with a history of diabetes mellitus, high blood pressure, hyperlipidemia, obesity, aortic stenosis who was admitted for TAVR on the May. The procedure was performed. It was successful. The patient has a left bundle-branch block baseline ejection fraction 40%. I was consulted for further evaluation and management. The chart was reviewed. The patient was evaluated. ALLERGIES None SOCIAL HISTORY The patient currently denies smoking and drinking. FAMILY HISTORY Noncontributory to his current medical condition. MEDICATIONS The patient at home is on: 1. Glipizide 10 mg a day 2. Lantus 3. Losartan 4. Hydrochlorothiazide 5. Aspirin 6. Metformin 7. Nitro p.r.n. 8. Zocor 10 mg a day REVIEW OF SYSTEMS The patient refers no chest pain or chest discomfort, ambulating, no vomiting. No fever. PHYSICAL EXAM Alert, fully oriented. VITAL SIGNS: Blood pressure 121/77, pulse 87, respiratory 18. LUNGS: Ventilated. CARDIOVASCULAR: S1-S2 regular. No gallop. No murmur. ABDOMEN: Soft. No mass. No bruit. EXTREMITIES: No edema. Adequate pulses. LABORATORY DATA Hemoglobin is 11, white blood cell 10.4, potassium 4.0, creatinine 1.06, INR is 1.0. ASSESSMENT AND RECOMMENDATIONS Mrs. Padilla is stable. She has left bundle-branch block that was at baseline. There is no pause on telemetry. She is asymptomatic. At this point, my recommendation is observation. The patient can be followed by the TAVR team. There will be no need for pacing support or further investigation of her left bundle-branch block. She can be discharged home whenever it is okay with the managing team. I will be available in a p.r.n. basis. MD SHILPI Altamirano/SARBJIT /8:15 AM /8:48 AM
[2017-06-12] MEDS: ASPIRIN 81 MG CHEW TAB PO SCH (09:19)
[2017-06-12] MEDS: CLOPIDOGREL 75 MG TAB PO SCH (09:19)
--- NOTE | 2017-06-12 10:43 | ECHRPT ---
Indication: ASSESS OF CHF CONCLUSIONS s/p TAVR 23mm S3 Adequate function of aortic bioprosthesis No aortic valve regurgitation. Aortic valve area is 1.4 cm. Aortic valve mean gradient is 16 mmHg Vmax is 2.63 No wall motion abnormalities No pericardial effusion BP: 130 / 54 HR: 82 Rhythm: Sinus MEASUREMENTS (Male / Female) Normal Values Technical Quality:Good 2D ECHO LVOT Diameter 2.1 cm DOPPLER AV Peak Velocity 262.5 cm/s AV Peak Gradient 27.6 mmHg AV Mean Gradient 16.0 mmHg AV Velocity Time Integral 43.4 cm LVOT Peak Velocity 61.7 cm/s LVOT Peak Gradient 1.5 mmHg LVOT Velocity Time Integral 17.3 cm LVOT Cardiac Index 2552.6 cm/minm AV Area Cont Eq vti 1.4 cm AV Area Cont Eq pk 0.8 cm FINDINGS AORTIC VALVE No aortic valve regurgitation. Aortic valve area is 1.4 cm. Aortic valve mean gradient is 16 mmHg Vmax is 263 Noel Lowe MD (Electronically Signed) Final Date:12 June 2017 10:42
[2017-06-12] MEDS ORDERED: IOHEXOL 350 MG/ML 50 ML BTL (for Cath Lab) OTHER ONE (10:45)
--- NOTE | 2017-06-30 10:45 | RSPPFT ---
DATE OF PROCEDURE: 05/25/17 COMMENTS: Spirometry is within the normal limits. Flow volume loops appear unremarkable. IMPRESSION: 1. Essentially normal pulmonary function study.
== END 2017-06-12 13:27 | disposition home or self-care (01) | DRG 266 ==
LOC: HDIC 08:13 → HCVR 14:19 → HCIN 06-11 19:31
PROVIDERS: ADMIT Radiology Vascular & Interventional Radiology; ATTEND Radiology Vascular & Interventional Radiology
PROC: B246ZZ4 Ultrasonography of Right and Left Heart, Transesophageal (ICD-10-PCS; 2017-06-10)
PROC: 02RF38Z Replacement of Aortic Valve with Zooplastic Tissue, Percutaneous Approach (ICD-10-PCS; principal; 2017-06-10 12:00)
PROC: B3101ZZ Fluoroscopy of Thoracic Aorta using Low Osmolar Contrast (ICD-10-PCS; 2017-06-10 12:00)
PROC: 5A1223Z Performance of Cardiac Pacing, Continuous (ICD-10-PCS; 2017-06-10 12:00)
DX: I35.0 Nonrheumatic aortic (valve) stenosis (principal); I50.23 Acute on chronic systolic (congestive) heart failure; E11.22 Type 2 diabetes mellitus with diabetic chronic kidney disease; Z00.6 Encounter for examination for normal comparison and control in clinical research program; I44.7 Left bundle-branch block, unspecified; N18.2 Chronic kidney disease, stage 2 (mild); E78.5 Hyperlipidemia, unspecified; Z79.4 Long term (current) use of insulin; I12.9 Hypertensive chronic kidney disease with stage 1 through stage 4 chronic kidney disease, or unspecified chronic kidney disease; E66.9 Obesity, unspecified; Z79.84 Long term (current) use of oral hypoglycemic drugs; Z79.82 Long term (current) use of aspirin; I20.8 Other forms of angina pectoris
CPT/HCPCS: 33210; 33361; 71010; 80048; 82948; 85002; 85025; 85027; 85610; 85730; 86850; 86900; 86901; 86920; 92986; 93005; 93308; 94150; C1760; C1769; C1893; G0269; J0690; J1644; J2250; J3010; J7030; Q9967